=== PATIENT | female | born 1955 | race Caucasian/White ===

== ENCOUNTER 2018-07-08 12:41 | Emergency (ER) | payer MEDICARE ==
[~2018-07-08] VITALS: Ht 162.6 cm; Wt 97.5 kg
--- OUTSIDE RECORDS SUMMARY | 2018-07-08 12:43 | XMS REPORT | Clinical Summary ---
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 LOT:[id number] Exp: 04/1105/22/2018 Discontinued PROAIR HFA 90 INHALE 2 2 mcg/actuation inhaler PUFFS BY 7 MOUTH EVERY 6 HOURS 06/12/2018 Discontinued conjugated estrogens Insert 0.5 g 42.5 g 0 (PREMARIN) 0.625 mg/gram into the 9 vaginal creamIndications: vagina 3 Vaginal atrophy (three) times a week. LOT:[id number] Exp: 04/1105/28/2018 sulfamethoxazole-trimetho Take 1 tablet 6 tablet 0 prim (BACTRIM DS) 800-160 by mouth 2 9 mg per tabletIndications: (two) times a E. coli UTI day for 3 days. 06/02/2018 amoxicillin-pot Take 1 tablet 10 tablet 0 clavulanate (AUGMENTIN) (500 mg 9 500-125 mg per tablet total) by mouth 2 (two) times a day for 5 days. 05/28/2018 fluconazole (DIFLUCAN) Take 1 tablet 1 tablet 0 150 MG tablet (150 mg 9 total) by mouth once for 1 dose. 06/10/2018 ciprofloxacin HCl (CIPRO) Take 1 tablet 6 tablet 0 250 MG tabletIndications: (250 mg 9 Incomplete bladder total) by emptying mouth 2 (two) times a day for 3 days. Active Problems Problem Noted Date Osteopenia of multiple sites 06/03/2018 Encounters Care Team Description Date Type Specialty Annita Mendez MA Family history of breast cancer (Primary Dx) 06/19/2018 Telephone Obstetrics and Gynecology Keegan Silver MA Vaginal atrophy 06/12/2018 Telephone Obstetrics and Gynecology Annita Mendez MA 06/11/2018 Telephone Obstetrics and Gynecology Dori Estrada MA 06/11/2018 Telephone Obstetrics and Gynecology Licha Salinas MD Incomplete bladder emptying (Primary Dx); Vaginal discharge 06/07/2018 Office Visit Obstetrics and Gynecology Keegan Silver MA 06/06/2018 Telephone Obstetrics and Gynecology Keegan Silver MA 06/05/2018 Telephone Obstetrics and Gynecology Licha Salinas MD Breast cancer screening 06/01/2018 Hospital Radiology Encounter Licha Salinas MD 06/01/2018 Hospital Radiology Encounter Chloe Jamison RN 05/28/2018 Telephone Obstetrics and Gynecology Chloe Jamison RN 05/28/2018 Orders Only Obstetrics and Gynecology Chloe Jamison, RICHIE 05/25/2018 Telephone Obstetrics and Gynecology Licha Salinas MD E. coli UTI (Primary Dx) 05/25/2018 Orders Only Obstetrics and Licha Boyd MD Well woman exam (Primary Dx); Postmenopausal; Breast cancer screening; Osteoporosis screening; Vaginal smear; Pelvic pressure in female; Vaginal atrophy; Rectocele 05/22/2018 Office Visit Obstetrics and Gynecology after 07/07/2017 Family History Medical History Relation Name Comments Diabetes Father Colon cancer Maternal Grandfather Cancer Maternal LUNG Grandmother Breast cancer Mother Relation Name Status Comments Father Maternal Grandfather Maternal Grandmother Mother Social History Date Tobacco Use Types Packs/Day Years Used Never Smoker Smokeless Tobacco: Never Chew Used Alcohol Use Drinks/Week oz/Week Comments No Sex Assigned at Date Recorded Not on file Industry Job Start Date Occupation Not on file Not on file Not on file Travel End Travel History Travel Start No recent travel history available. Last Filed Vital Signs Time Taken Vital Sign Reading 06/07/2018 11:40 AM [employer] Blood Pressure 129/84 06/07/2018 11:40 AM [employer] Pulse 55 - Temperature - - Respiratory Rate - - Oxygen Saturation - - Inhaled Oxygen - Concentration 06/07/2018 11:40 AM [employer] Weight 105 kg (232 lb) 06/07/2018 11:40 AM [employer] Height 163.8 cm (5' 4.5") 06/07/2018 11:40 AM [employer] Body Mass Index 39.21 Plan of Treatment Care Team Description Date Type Specialty Raysa Taylor MD [address] [facility] [address] [place] [id number] 07/30/2018 Office Visit Urogynecology Health Maintenance Due Date Last Done Comments CERVICAL CANCER SCREENING 1974 COLON CANCER SCREENING 2003 SHINGLES VACCINES (#1) 2003 INFLUENZA VACCINE 11/22/2017 65+ PNEUMOCOCCAL VACCINE 2018 (1 of 2 - PCV13) PNEUMOCOCCAL 2018 POLYSACCHARIDE VACCINE AGE 65 AND OVER BREAST CANCER SCREENING 06/01/2020 06/01/2018 Procedures Comments Procedure Name Priority Date/Time Associated Diagnosis SURESWAB(R), CANDIDIASIS, Routine 06/07/2018 PCR (REFLEX) 12:20 PM [employer] SURESWAB(R) TRICHOMONAS Routine 06/07/2018 VAGINALIS RNA, QL, TMA 12:20 PM [employer] SURESWAB(R) BACTERIAL Routine 06/07/2018 VAGINOSIS DNA, QN, PCR 12:20 PM [employer] (REFLEX) URINE CULTURE Routine 06/07/2018 Incomplete bladder 12:19 PM [employer] emptying BONE DENSITY Routine 06/01/2018 Osteoporosis screening 1:16 PM [employer] MAMMO BREAST SCREEN Routine 06/01/2018 Breast cancer screening TOMOSYNTHESIS BILATERAL 1:12 PM [employer] URINE CULTURE Routine 05/22/2018 Pelvic pressure in female 5:00 PM [employer] HPV MRNA E6/E7 REFLEX TO Routine 05/22/2018 HPV 16, 18/45 4:29 PM [employer] THINPREP TIS PAP Routine 05/22/2018 Vaginal smear 4:29 PM [employer] after 07/07/2017 Results * SURESWAB(R), CANDIDIASIS, PCR (06/07/2018 12:20 PM [employer]) C. albicans, DNA NOT DETECTED [facility] C. glabrata, DNA NOT DETECTED [facility] C. tropicalis, DNA NOT DETECTED [facility] C. parapsilosis, DNA NOT DETECTED [facility] Comment: REFERENCE RANGE: NOT DETECTED This test was developed and its analytical performance characteristics have been determined by [facility]. It has not been cleared or approved by FDA. This assay has been validated pursuant to the CLIA regulations and is used for clinical purposes. Resulting Agency Comment Performing Organization Information: Site ID: [id number] Name: [facility] Address: [address] [place] [phone] Director: Wayne Calles MD Performing Organization Address [facility]/[employer] Phone Number [facility] [address] [place] [address] [phone] * SURESWAB(R) TRICHOMONAS VAGINALIS RNA, QL, TMA (Reflex) (06/07/2018 12:20 PM [employer]) Sureab(r) trichomonas NOT DETECTED [facility] vaginalis RNA, QL, TMA Comment: REFERENCE RANGE: NOT DETECTED This test was performed using the APTIMA(R) Trichomonas vaginalis assay (Gen-Probe(R)). For additional information, please refer to [email or web address] Resulting Agency Comment Performing Organization Information: Site ID: [id number] Name: [facility] Address: [address] [place] [phone] Director: Wayne Calles MD Performing Organization Address [facility]/[employer] Phone Number [facility] [address] [place] [address] [phone] * SURESWAB(R) BACTERIAL VAGINOSIS DNA, QN, PCR (06/07/2018 12:20 PM [employer]) BV category NOT SUPPORTIVE [facility] Lactobacillus species NOT DETECTED Log (cells/mL) [facility] Atopobium vaginae NOT DETECTED Log (cells/mL) [facility] Megasphaera species NOT DETECTED Log (cells/mL) [facility] Gardnerella vaginalis NOT DETECTED Log (cells/mL) [facility] Comment: REFERENCE RANGE: BV Category: NOT SUPPORTIVE NOT SUPPORTIVE OF BV: The pattern of results is not supportive of a diagnosis of BV: 1) Presence of Lactobacillus spp., G. vaginalis levels less than 6.0 log cells/mL, and absence of A. vaginae and Megasphaera spp; or 2) Absence of all targeted organisms; or 3) Absence of Lactobacillus spp. plus G. vaginalis detected at levels less than 6.0 log cells/mL and absence of A. vaginae and Megasphaera spp. EQUIVOCAL FOR BV: The pattern of results is neither supportive nor not supportive of a diagnosis of BV. The patient may be in transition into or out of BV: Presence of Lactobacillus spp. plus G. vaginalis (greater or equal to 6.0 log cells/mL) and/or one of the other BV-associated pathogens. SUPPORTIVE OF BV: The pattern of results is supportive of a diagnosis of BV: Absence of Lactobacillus spp. and presence of G. vaginalis greater than or equal to 6.0 log cells/mL and/or one or both of the other BV-associated pathogens. Concentration for Lactobacilli (L. acidophilus/crispatus, L. jensenii) are collectively reported under the term "Lactobacillus spp.", as these species are among the peroxide producing Lactobacilli thought to be protective against bacterial vaginosis. Atopobium vaginae, Megasphaera spp., and Gardnerella (greater than 6.0 log cells/mL) have been associated with vaginosis when present in the absence of peroxidase producing Lactobacilli. This test was developed and its analytical performance characteristics have been determined by [facility]. It has not been cleared or approved by FDA. This assay has been validated pursuant to the CLIA regulations and is used for clinical purposes. Resulting Agency Comment Performing Organization Information: Site ID: [id number] Name: [facility] Address: [address] [place] [phone] Director: Wayne Calles MD Performing Organization Address City/[facility]/Zipcode Phone Number [facility] [address] [place], [place] [phone] * Urine culture (06/07/2018 12:19 PM [employer]) Only the most recent of 2 results within the time period is included. Urine culture SEE NOTE [facility] Comment: BLAC[place]Y CULTURE, URINE, ROUTINE MICRO NUMBER:[id number] TEST STATUS: FINAL SPECIMEN SOURCE: NOT GIVEN SPECIMEN QUALITY:ADEQUATE RESULT: Single organism less than 10,000 CFU/mL isolated. These organisms, commonly found on external and internal genitalia, are considered colonizers. No further testing performed. Specimen Urine Resulting Agency Comment Performing Organization Information: Site ID: [id number] Name: [facility] Address: [address] [place] [id number] Director: Gia Thurman Performing Organization Address [facility]/[employer] Phone Number [facility] [address] [address] * Bone Density (06/01/2018 1:16 PM [employer]) Narrative Performed At EXAMINATION:BONE DENSITY [facility] CLINICAL HISTORY:Z13.820 Encounter for screening for osteoporosis, osteoporosis screening COMPARISON:None. The results of this study expressed as bone mineral density (BMD) were as follows: AP spine (L1-L4) BMD: 0.855 g/cm2 T-Score: -1.7 Z score: 0.0 Previous: No prior exam Left Femur (Total Mean): BMD: 0.756 g/cm2 T-Score: -1.5 Z score: Mild dural 0.3 Previous: No prior exam Left femoral neck: BMD: 0.678 g/cm2 T-Score: -1.5 Z score: 0.0 Right Femur (Total Mean): BMD: 0.789 g/cm2 T-Score: -1.3 Z score: 0.0 Previous: No prior exam Right femoral neck: BMD: 0.706 g/cm2 T-Score: -1.3 Z score: 0.2 Dual femur FRAX: Risk factors: None. 10 year probability of fracture: 1.Major osteoporotic: 7.9% 2.Hip: 0.8% 3.Based on dual femur left neck BMD Impression: Bone mineral density values as above. Bone mineral density is considered osteopenic [id number] A copy of this scans including a report detailing these results will follow. Note: The world health organization (WHO) has classified the patient's T-score as follows: Above (-1) as normal (-1) to (-2.5) as low (osteopenia) Below (-2.5) as abnormally low (osteoporosis, increased fracture risk) Procedure Note Interface, Radiology Results - 06/01/2018 2:04 PM [employer] EXAMINATION: BONE DENSITY CLINICAL HISTORY: Z13.820 Encounter for screening for osteoporosis, osteoporosis screening COMPARISON: None. The results of this study expressed as bone mineral density (BMD) were as follows: AP spine (L1-L4) BMD: 0.855 g/cm2 T-Score: -1.7 Z score: 0.0 Previous: No prior exam Left Femur (Total Mean): BMD: 0.756 g/cm2 T-Score: -1.5 Z score: Mild dural 0.3 Previous: No prior exam Left femoral neck: BMD: 0.678 g/cm2 T-Score: -1.5 Z score: 0.0 Right Femur (Total Mean): BMD: 0.789 g/cm2 T-Score: -1.3 Z score: 0.0 Previous: No prior exam Right femoral neck: BMD: 0.706 g/cm2 T-Score: -1.3 Z score: 0.2 Dual femur FRAX: Risk factors: None. 10 year probability of fracture: 1. Major osteoporotic: 7.9% 2. Hip: 0.8% 3. Based on dual femur left neck BMD Impression: Bone mineral density values as above. Bone mineral density is considered osteopenic [id number] A copy of this scans including a report detailing these results will follow. Note: The world health organization (WHO) has classified the patient's T-score as follows: Above (-1) as normal (-1) to (-2.5) as low (osteopenia) Below (-2.5) as abnormally low (osteoporosis, increased fracture risk) Performing Organization Address City/State/Zipcode Phone Number [facility] [address] [place] [address] * Mammo Breast Screen Tomosynthesis Bilateral (06/01/2018 1:12 PM [employer]) Narrative Performed At EXAMINATION: MAMMO BREAST SCREEN TOMOSYNTHESIS BILATERAL [facility] COMPARISON:No prior mammograms provided for comparison. TECHNIQUE: Bilateral digital screening mammography was performed with tomosynthesis and interpreted using computer-assisted detection. CLINICAL HISTORY: 63-year-old asymptomatic female with family history notable for mother diagnosed with breast cancer at age 45 with reported history of a breast cancer gene per the screening questionnaire. The patient presents for routine screening. FINDINGS: There are scattered fibroglandular densities. There are no suspicious masses, calcifications or distortions in either breast.There are bilateral arterial vascular calcifications. IMPRESSION: No specific mammographic features of breast malignancy. BI-RADS 2:BENIGN Recommend comparison with physical examination. In the absence of new clinical findings, the patient should return for bilateral screening mammography in 1 year.Formal clinical risk assessment and/or consultation with a breast surgeon is recommended to determine if the patient is a candidate for adjunct high risk screening with contrast enhanced bilateral breast MRI given reported family history of a first degree relative with a breast cancer mutation. This facility is accredited by the [employer] for Mammography. A negative x-ray report should not delay biopsy if a dominant or clinically suspicious mass is present.Not all cancers are identified by x-ray. [id number] Performing Organization Address [facility]/State/Zipcode Phone Number [facility] [address] [place] [address] * HPV mRNA E6/E7 REFLEX TO HPV 16, 18/45 (05/22/2018 4:29 PM [employer]) HPV mRNA e6/e7 Not Detected Not Detected [facility] Comment: BLACHLY This test was performed using the APTIMA HPV Assay ([employer] This assay detects E6/E7 viral messenger RNA (mRNA) from 14 high-risk HPV types (16,18,31,33,35,39,45,51,52,56 ,58,59,66,68). The analytical performance characteristics of this assay have been determined by [facility]. The modifications have not been cleared or approved by the FDA. This assay has been validated pursuant to the CLIA regulations and is used for clinical purposes. Resulting Agency Comment Performing Organization Information: Site ID: [id number] Name: [facility] Address: [address] [place] [phone] Director: Gia Thurman Performing Organization Address [facility]/[employer] Phone Number [facility] [place] [address] [place], [place] [phone] * THINPREP TIS PAP (05/22/2018 4:29 PM [employer]) Clinical information [facility] [place] Date of last menstrual NONE GIVEN [facility] period [place] Prev. pap: NONE GIVEN [facility] [place] Prev. bx: NONE GIVEN [facility] [place]AC[place]Y Source None given [facility] BLACHLY Statement of adequacy Comment: [facility] Satisfactory for evaluation. BLACHLY Endocervical/transformation zone component absent. Interpretation/result: Comment: [facility] Negative for intraepithelial BLACHLY lesion or malignancy. Atrophic pattern; predominantly parabasal cells Comment Comment: [facility] This Pap test has been BLACHLY evaluated with computer assisted technology. Systems Project Manager Comment: [facility] YL, CT(ASCP) BLACHLY CT screening location: [address], [facility] [address] Comment Comment: [facility] EXPLANATORY NOTE: BLACHLY The Pap is a screening test for cervical cancer. It is not a diagnostic test and is subject to false negative and false positive results. It is most reliable when a satisfactory sample, regularly obtained, is submitted with relevant clinical findings and history, and when the Pap result is evaluated along with historic and current clinical information. Specimen Vaginal Resulting Agency Comment Performing Organization Information: Site ID: [id number] Name: [facility] Address: [address] [place] [phone] Director: Gia Thurman Performing Organization Address [facility]/[employer] Phone Number RENETTA [facility] [place] [address] [place] [address] after 07/07/2017 Insurance Payer Benefit Subscriber ID Type Phone Address Plan / Group MEDICARE MEDICARE xxxxxxxxxxx Medicare [place], [place] PART A AND B AARP AARP xxxxxxxxx-xx Commercial SUPPLEMENT Advance Directives Patient has advance care planning documents on file. For more information, teja farrell contact: Ady Knutson [address] [place] [address]
[2018-07-08] MEDS ORDERED: ALBUTEROL/IPRATROPIUM 3 ML NEB NEB ONE (13:45)
[2018-07-08] MEDS ORDERED: AZITHROMYCIN250 MG PO (14:21)
[2018-07-08] MEDS ORDERED: PREDNISONE20 MG PO (14:24)
[2018-07-08] MEDS ORDERED: CHERATUSSIN AC118 ML PO (14:26)
[2018-07-08 14:43] VITALS: BP 142/72
[2018-07-08] MEDS ORDERED: PREDNISONE 20 MG TAB PO ONE (15:00)
== END 2018-07-08 14:25 | disposition home or self-care (01) ==
LOC: FSED 12:41
DX: R06.00 Dyspnea, unspecified (principal); J44.1 Chronic obstructive pulmonary disease with (acute) exacerbation; J02.9 Acute pharyngitis, unspecified; Z87.891 Personal history of nicotine dependence
CPT/HCPCS: 99283; J7512